=== PATIENT | female | born 1945 | race Two or more races ===

== ENCOUNTER 2024-07-21 18:48 | Emergency (ER) | payer OTHER ==
[~2024-07-21] VITALS: Ht 160 cm; Wt 69.9 kg
[2024-07-21] MEDS ORDERED: SIMVASTATIN5 MG (19:05)
[2024-07-21] MEDS ORDERED: GLUMETZA500 MG (19:05)
[2024-07-21] MEDS ORDERED: METHYLPREDNISOLONE SOD SUCC 40 MG VIAL IV ONE (19:30)
[2024-07-21] MEDS ORDERED: GENTAMICIN SULFATE 0.15 MG/DR DROPS 5ML OP ONE ×2 (19:30→19:48)
[2024-07-21] MEDS ORDERED: DIPHENHYDRAMINE HCL 50 MG/ML VIAL 1ML IV ONE (19:30)
[2024-07-21] MEDS ORDERED: DIPHENHYDRAMINE HCL 50 MG/ML VIAL 1ML ONE (19:48)
[2024-07-21] MEDS ORDERED: METHYLPREDNISOLONE SOD SUCC 125 MG VIAL ONE (19:48)
[2024-07-21 20:24] LABS: HEMATOCRIT 44.7 % (36.0-45.00); HEMOGLOBIN 14.7 g/dL (12.0-15.00); MEAN CELL VOLUME 92.9 fL (80.00-100.00); MEAN CORPUSCULAR HEMOGLOBIN 30.6 pg (27.00-32.0); MEAN CORPUSCULAR HGB CONC 32.9 g/dl (32.0-36.0); PLATELET COUNT 331 K/uL (150-450); RED BLOOD COUNT 4.82 M/uL (4.00-6.00); RED CELL DISTRIBUTION WIDTH 14.5 % (11.5-14.5)
[2024-07-21 20:48] LABS: ALBUMIN 3.4 gm/dL (3.4-5.0); BILIRUBIN TOTAL 0.24 mg/dL (0.3-1.2); CALCIUM 11.1 mg/dL (8.5-10.1); CREATININE SERUM 0.64 mg/dL (0.55-1.02); GFR 89.28; GLOBULINA 3.6 G/DL (2.4-3.5); POTASSIUM 4.27 mEq/L (3.5-5.1)
[2024-07-21] MEDS ORDERED: CEFTRIAXONE SODIUM 1,000 MG VIAL IM ONE (22:30)
[2024-07-21] MEDS ORDERED: CEFTRIAXONE SODIUM 1,000 MG VIAL ONE (22:33)
[2024-07-21] MEDS ORDERED: MEDROLPACK PO (22:35)
[2024-07-21] MEDS ORDERED: GENTAMICIN SULFA5 ML OPHT (22:35)
== END 2024-07-21 22:42 | disposition home or self-care (01) ==
LOC: ER 18:51
PROVIDERS: General Practice
DX: H44.009 Unspecified purulent endophthalmitis, unspecified eye (principal); Z20.822 Contact with and (suspected) exposure to COVID-19
CPT/HCPCS: 36415; 96365; 99282; J0696; J1200; J3490